=== PATIENT | male | born 1975 | race African-American/Black ===

== ENCOUNTER 2025-02-27 14:20 | Emergency (ER) | payer MEDICAID ==
[~2025-02-27] VITALS: Ht 172.7 cm; Wt 86.0 kg
[~2025-02-27 14:20] MED LIST: MOTRIN
[2025-02-27 14:31] VITALS: O2SAT 100
[2025-02-27 15:21] LABS: BASOPHILS % 0.3 % (0.0-2.0); EOSINOPHILS % 2.5 % (0.0-5.0); HEMATOCRIT. 45.5 % (42.0-52.0); HEMOGLOBIN. 15.4 g/dL (14.0-18.0); LYMPHOCYTES % 26.5 % (20.0-50.0); MEAN PLATELET VOLUME 9.2 fl (7.4-10.4); MONOCYTES % 9.8 % (2.0-8.0); NEUTROPHILS % 60.9 % (40.0-76.0); PLATELET 212 x1000/uL (130-400); RED BLOOD CELL COUNT 5.64 mill/uL (4.7-6.1); RED CELL DISTRIBUTION WIDTH 12.5 % (11.6-14.6)
[2025-02-27 15:37] LABS: CREATININE 1.1 mg/dL (0.6-1.3); UREA NITROGEN BLOOD 12 mg/dL (9-23)
[2025-02-27 15:38] LABS: TROPONIN I HIGH SENSITIVITY 16 ng/L (3.0-53)
[2025-02-27 17:16] VITALS: BP 141/95; PULSE 89; RESP 16; TEMP 37.1; O2SAT 99
== END 2025-02-27 17:18 | disposition home or self-care (01) ==
LOC: ER 14:20
DX: I10 Essential (primary) hypertension (principal); Z79.899 Other long term (current) drug therapy
CPT/HCPCS: 36415; 71045; 80048; 83880; 84484; 85025; 85379; 93005; 99285